=== PATIENT | female | born 1985 | race Caucasian/White ===

== ENCOUNTER 2021-12-25 14:37 | Emergency (ER) | payer OTHER | END 2021-12-25 20:52 | disposition left against medical advice (07) | LOC: ER1 14:37 | DX: M54.2 Cervicalgia (principal); G89.29 Other chronic pain; F17.200 Nicotine dependence, unspecified, uncomplicated; K21.9 Gastro-esophageal reflux disease without esophagitis; Z88.5 Allergy status to narcotic agent | CPT/HCPCS: 72125; 99283 ==